=== PATIENT | male | born 1960 | race Caucasian/White ===

== ENCOUNTER 2019-05-30 13:27 | Inpatient (IN) | payer OTHER ==
[2019-05-30] MEDS ORDERED: Ondansetron 4 MG/2 ML SDV IVPUSH ONE (13:55)
[2019-05-30] MEDS ORDERED: Lactated Ringers 1,000 ML IV SCH (14:00)
[2019-05-30] MEDS ORDERED: Iopamidol 612 MG/ML 100 ML Bottle IVPUSH ONE (14:01)
[2019-05-30 14:27] LABS: ANION GAP 20.7 mmol/L (10-20); CHLORIDE,CL 100 mmol/L (98-107); SODIUM,NA 139 mmol/L (136-145)
--- NOTE | 2019-05-30 14:57 | EDM.PDOC ---
ED HPI GENERAL MEDICAL PROBLEM - General Chief Complaint: Abdominal Pain Stated Complaint: abdominal pain, nausea Time Seen by Provider: 05/30/19 13:47 Source of Information: Reports: Patient, Family History Limitations: Reports: No Limitations - History of Present Illness INITIAL COMMENTS - FREE TEXT/NARRATIVE: Patient presents with complaints of abdominal pain, nausea, that started last night at 8 pm. No recent illness contact. Has had appendix removed. Extensive bowel history with multiple obstructions and numerous surgeries with partial colon resection. Denies fever, chills, headache, neck ache. Denies chest pain, diaphoresis, SOB. Denies any bowel or bladder complaints. No blood in urine or stools. Denies edema or joint pain. Describes pain as sharp , stabbing, cramping, and is constant with intermittent intervals of worsening pain. Onset Date: 05/29/19 Duration: Constant, Intermittent Location: Reports: Abdomen Severity: Moderate Upper Abdominal Pain Score (Numeric/FACES): 2 - Related Data Allergies Allergy/AdvReac Type Severity Reaction Status Date / Time No Known Allergies Allergy Verified 05/30/19 13:48 Home Meds: Home Meds Cyanocobalamin (Vitamin B12) [Vitamin B12] 1,000 mcg ASDIRECTED 05/30/19 [ History] FA/Lycopene/Lut/MV,Ca,Iron,Min [Centrum] 1 tab DAILY 05/30/19 [History] L.acidoph,Paracasei, B.lactis [Probiotic] 2 cap BID 05/30/19 [History] oxyCODONE 5 mg TID PRN 05/30/19 [History] Past Medical History - Past Health History Medical/Surgical History: Denies Medical/Surgical History HEENT History: Reports: Other (See Below) Other HEENT History: myopia. presbyopia Gastrointestinal History: Reports: Bowel Obstruction, Other (See Below) Other Gastrointestinal History: alcohol induced pancreatitis. diarrhea. hx of necrotic bowel. malnutrition Neurological History: Reports: Neuropathy, Peripheral Psychiatric History: Reports: Depression Endocrine/Metabolic History: Reports: Other (See Below) Other Endocrine/Metabolic History: malnutrition. septic shock - Infectious Disease History Infectious Disease History: Reports: Hepatitis C - Past Surgical History GI Surgical History: Reports: Other (See Below) Other GI Surgeries/Procedures: bowel resection Social & Family History - Tobacco Use Smoking Status *Q: Current Every Day Smoker Years of Tobacco use: 42 Packs/Tins Daily: 0.5 - Recreational Drug Use Recreational Drug Use: Yes Drug Use in Last 12 Months: No - Living Situation & Occupation Living situation: Reports: , with Family Occupation: Employed ED ROS GENERAL - Review of Systems Review Of Systems: See Below Constitutional: Reports: No Symptoms HEENT: Reports: No Symptoms Respiratory: Reports: No Symptoms Cardiovascular: Reports: No Symptoms Endocrine: Reports: No Symptoms GI/Abdominal: Reports: Abdominal Pain, Nausea, Vomiting : Reports: No Symptoms Musculoskeletal: Reports: No Symptoms Skin: Reports: No Symptoms Neurological: Reports: No Symptoms Psychiatric: Reports: No Symptoms Hematologic/Lymphatic: Reports: No Symptoms Immunologic: Reports: No Symptoms ED EXAM, GI/ABD - Physical Exam Exam: See Below Exam Limited By: No Limitations General Appearance: Alert, WD/WN, Mild Distress Eyes: Bilateral: Normal Appearance, EOMI Ears: Normal TMs Nose: Normal Inspection, Normal Mucosa, No Blood Throat/Mouth: Normal Inspection, Normal Lips, Normal Teeth, Normal Gums, Normal Oropharynx, Normal Voice, No Airway Compromise Head: Atraumatic, Normocephalic Neck: Normal Inspection, Supple, Non-Tender, Full Range of Motion Respiratory/Chest: No Respiratory Distress, Lungs Clear, Normal Breath Sounds, No Accessory Muscle Use, Chest Non-Tender Cardiovascular: Normal Peripheral Pulses, Regular Rate, Rhythm, No Edema, No Gallop, No JVD, No Murmur, No Rub GI/Abdominal Exam: Normal Bowel Sounds, Soft, No Distention, Tender Extremities: Normal Inspection, Normal Range of Motion, Non-Tender, Normal Capillary Refill, No Pedal Edema Neurological: Alert, Oriented, CN II-XII Intact, Normal Cognition, Normal Gait, Normal Reflexes, No Motor/Sensory Deficits Psychiatric: Normal Affect, Normal Mood Skin Exam: Warm, Dry, Intact, Normal Color, No Rash Lymphatic: No Adenopathy Course - Vital Signs Last Recorded V/S: Last Vital Signs Temp 35.9 C 05/30/19 13:30 Pulse 83 05/30/19 13:30 Resp 18 05/30/19 13:30 BP 154/94 H 05/30/19 13:30 Pulse Ox 99 05/30/19 13:30 - Orders/Labs/Meds Orders: Active Orders 24 hr Category Date Time Status Abdomen Pelvis w Cont [CT] Stat Exams 05/30/19 13:55 Ordered Lactated Ringers [Ringers, Lactated] 1,000 ml Med 05/30/19 14:00 Ordered IV ASDIRECTED Sodium Chloride 0.9% [Saline Flush] Med 05/30/19 13:55 Ordered 10 ml FLUSH ASDIRECTED PRN Saline Lock Insert [OM.PC] Routine Oth 05/30/19 13:55 Ordered Medication Orders Lactated Ringer's (Ringers, Lactated) 1,000 mls @ 999 mls/hr IV ASDIRECTED MARTHA Last Admin: 05/30/19 14:05 Dose: 999 mls/hr Sodium Chloride (Saline Flush) 10 ml FLUSH ASDIRECTED PRN PRN Reason: Keep Vein Open Labs: Laboratory Tests 05/30/19 05/30/19 05/30/19 Range/Units 13:40 13:40 14:30 WBC 10.8 H (4.0-10.0) x10^3/uL RBC 4.90 (4.5-6.0) x10^6/uL Hgb 15.5 D (14.0-18.0) g/dL Hct 43.4 (40.0-52.0) % MCV 88.6 D (78.0-93.0) fL MCH 31.6 (26.0-32.0) pg MCHC 35.7 (32.0-36.0) g/dL RDW Coeff of Dionicio 13.0 (10.0-15.0) % Plt Count 237 D (130-400) x10^3/uL Neut % (Auto) 77.5 (50.0-80.0) % Lymph % (Auto) 14.8 L (25.0-50.0) % [place] % (Auto) 7.1 (2.0-11.0) % Eos % (Auto) 0.2 (0.0-4.0) % Baso % (Auto) 0.4 (0.2-1.2) % Sodium 139 (136-145) mmol/L Potassium 3.7 (3.5-5.1) mmol/L Chloride 100 (98-107) mmol/L Carbon Dioxide 22 (21-32) mmol/L Anion Gap 20.7 H (10-20) mmol/L BUN 15 (7-18) mg/dL Creatinine 0.8 (0.70-1.30) mg/dL Est Cr Clr Drug Dosing 80.01 mL/min Estimated GFR (MDRD) > 60 Glucose 95 (74-106) mg/dL Calcium 9.8 D (8.5-10.1) mg/dL Corrected Calcium 9.64 (8.5-10.1) mg/dL Total Bilirubin 2.1 H (0.2-1.0) mg/dL AST 56 H (15-37) U/L ALT 151 H (16-63) U/L Alkaline Phosphatase 88 (46-116) U/L C-Reactive Protein < 0.2 (<=0.9) mg/dL Total Protein 8.3 H (6.4-8.2) g/dL Albumin 4.2 (3.4-5.0) g/dL Globulin 4.1 Albumin/Globulin Ratio 1.02 Urine Color Gretel H (YELLOW) Urine Appearance Clear (CLEAR) Urine pH 5.5 (5.0-8.0) Ur Specific [place] 1.025 Urine Protein 30 H (NEGATIVE) mg/dL Urine Glucose (UA) Negative (NEGATIVE) mg/dL Urine Ketones 40 H (NEGATIVE) mg/dL Urine Occult Blood Negative (NEGATIVE) Urine Nitrite Negative (NEGATIVE) Urine Bilirubin Small H (NEGATIVE) Urine Urobilinogen 2.0 H (0.2) EU/dL Ur Leukocyte Esterase Negative (NEGATIVE) Urine RBC 0-5 (NOT SEEN) /HPF Urine WBC 0-5 (NOT SEEN) /HPF Ur Squamous Epith Cells Few H (NEGATIVE) /HPF Urine Bacteria Few H (NEGATIVE) /HPF Urine Mucus Few H (NEGATIVE) /LPF Meds: Medications Generic Name Dose Route Start Last Admin Trade Name Freq PRN Reason Stop Dose Admin Lactated Ringer's 1,000 mls @ 999 mls/hr 05/30/19 14:00 05/30/19 14:05 Ringers, Lactated IV 999 mls/hr ASDIRECTED MARTHA Administration Sodium Chloride 10 ml 05/30/19 13:55 Saline Flush FLUSH ASDIRECTED PRN Keep Vein Open Discontinued Medications Generic Name Dose Route Start Last Admin Trade Name Freq PRN Reason Stop Dose Admin Iopamidol 100 ml 05/30/19 14:01 05/30/19 14:38 Isovue-300 (61%) IVPUSH 05/30/19 14:02 100 ml ONETIME ONE Administration Ondansetron HCl 4 mg 05/30/19 13:55 05/30/19 14:05 Zofran IVPUSH 05/30/19 13:56 4 mg ONETIME ONE Administration Departure - Departure Time of Disposition: 15:27 Disposition: Admitted As Inpatient 65 Condition: Good Clinical Impression: Small bowel obstruction - Discharge Information *PRESCRIPTION DRUG MONITORING PROGRAM REVIEWED*: Not Applicable *COPY OF PRESCRIPTION DRUG MONITORING REPORT IN PATIENT DORCAS: Not Applicable ED Communication - ED Communication Date/Time Date: 05/30/19 Time Called: 15:15 - Discussed Case With (1) Discussed Case With (1): Admitting Provider (Kiko Marquis was contacted regarding patient admission. Report given and he will admit acute.) - Problem List & Annotations (1) Small bowel obstruction SNOMED Code(s): 715878209 Code(s): K56.609 - UNSP INTESTNL OBST, UNSP TO PARTIAL VERSUS COMPLETE OBST Status: Acute Priority: Medium Current Visit: Yes - Problem List Review Problem List Initiated/Reviewed/Updated: Yes - My Orders Last 24 Hours: My Active Orders 05/30/19 13:55 Abdomen Pelvis w Cont [CT] Stat Sodium Chloride 0.9% [Saline Flush] 10 ml FLUSH ASDIRECTED PRN Saline Lock Insert [OM.PC] Routine 05/30/19 14:00 Lactated Ringers [Ringers, Lactated] 1,000 ml IV ASDIRECTED - Assessment/Plan Last 24 Hours: My Active Orders 05/30/19 13:55 Abdomen Pelvis w Cont [CT] Stat Sodium Chloride 0.9% [Saline Flush] 10 ml FLUSH ASDIRECTED PRN Saline Lock Insert [OM.PC] Routine 05/30/19 14:00 Lactated Ringers [Ringers, Lactated] 1,000 ml IV ASDIRECTED Assessment:: small bowel obstruction Plan: Admit to inpatient. Will insert NG, start on reglan, monitor and transfer as needed. Stable in ED. Patient is code level I.
--- NOTE | 2019-05-30 15:04 | CT ---
[id number] CT/CT Abdomen Pelvis W IV EXAM: CT Abdomen Pelvis W IV CLINICAL DATA: ABDOMINAL PAIN. HISTORY OF PREVIOUS SURGERY. HISTORY OF PREVIOUS BOWEL OBSTRUCTION COMPARISON: CORRELATION IS MADE WITH THE EXAM OF OCTOBER 02, 2016. FINDINGS: Recurrent small bowel obstruction is seen. There is no free fluid or free air. The pelvis shows no mass or adenopathy. The appendix is not seen. There is no abnormality of the kidneys, adrenals, pancreas, aorta, or spleen. There are tiny cysts in the liver. The portal venous system is patent. Gallstones again are identified. Report called at the time of the dictation. IMPRESSION: RECURRENT SMALL BOWEL OBSTRUCTION. Jonny Nair MD 05/30/19 0396 Thank you for allowing us to participate in the care of your patient.
[2019-05-30] MEDS ORDERED: Metoclopramide 10 MG/2 ML SDV IVPUSH SCH ×2 (16:00)
[2019-05-30] MEDS ORDERED: Morphine 4 MG/ML Syringe IVPUSH PRN (16:29)
[2019-05-30] MEDS ORDERED: Ondansetron 4 MG/2 ML SDV IVPUSH PRN (16:30)
[2019-05-30] MEDS ORDERED: Docusate Sodium 100 MG Cap PO PRN (16:31)
--- NOTE | 2019-05-30 16:42 | PCM.HP ---
H&P History of Present Illness - General Date of Service: 05/30/19 Admit Problem/Dx: Admission Diagnosis/Problem Admission Diagnosis/Problem Small bowel obstruction Source of Information: Patient, Family, Group Home Records, Old Records, Provider History Limitations: Reports: No Limitations - History of Present Illness Initial Comments - Free Text/Narative: Pt. presented to ER with one day history of diffuse abdominal pain and vomiting. Pt. has a history of numerous bowel obstructions in the past. He denies any fever or chills. No chest pain or shortness of breath. Denies any blood in his stool or vomit. He states that he did have a bowel movement eariler today. He states that after he vomited prior to coming into the ER, the abdominal discomfort improved. Pt. was seen by John CHOE in ER. CT scan showed partial small bowel obstruction. NG tube was placed to low intermittent suction. Approx. 300ml of output was noted, clear in color, likely from placement of the NG tube. There was no obvious blood or blood clots. At this point, the patient has not required any IV pain medication. He will be started on IV Morphine in the event that the pain worsens. Pt. is seen in clinic by Dr. Funmilayo Dominique who will assume care of the patient in the AM. Symptom Onset Date: 05/29/19 Quality: Reports: Ache Severity: Moderate Worsens with: Reports: Eating Context: Denies: Sick Contact Associated Symptoms: Reports: Nausea/Vomiting Upper Abdominal Pain Score (Numeric/FACES): 2 - Related Data Allergies/Adverse Reactions: Allergies Allergy/AdvReac Type Severity Reaction Status Date / Time No Known Allergies Allergy Verified 05/30/19 13:48 Home Medications: Home Meds Cyanocobalamin (Vitamin B12) [Vitamin B12] 1,000 mcg ASDIRECTED 05/30/19 [ History] FA/Lycopene/Lut/MV,Ca,Iron,Min [Centrum] 1 tab DAILY 05/30/19 [History] L.acidoph,Paracasei, B.lactis [Probiotic] 2 cap BID 05/30/19 [History] oxyCODONE 5 mg TID PRN 05/30/19 [History] Past Medical History - Past Health History Medical/Surgical History: Denies Medical/Surgical History HEENT History: Reports: Other (See Below) Other HEENT History: myopia. presbyopia Gastrointestinal History: Reports: Bowel Obstruction, Other (See Below) Other Gastrointestinal History: alcohol induced pancreatitis. diarrhea. hx of necrotic bowel. malnutrition Neurological History: Reports: Neuropathy, Peripheral Psychiatric History: Reports: Depression Endocrine/Metabolic History: Reports: Other (See Below) Other Endocrine/Metabolic History: malnutrition. septic shock - Infectious Disease History Infectious Disease History: Reports: Hepatitis C - Past Surgical History GI Surgical History: Reports: Other (See Below) Other GI Surgeries/Procedures: bowel resection Social & Family History - Tobacco Use Smoking Status *Q: Current Every Day Smoker Years of Tobacco use: 42 Packs/Tins Daily: 0.5 Tobacco Use Comment: Also "vapes" occasionally - Caffeine Use Caffeine Use: Reports: Coffee Caffeine Use Comment: 1/2 cup coffee per day - Recreational Drug Use Recreational Drug Use: Yes Drug Use in Last 12 Months: No - Living Situation & Occupation Living situation: Reports: , with Family Occupation: Employed H&P Review of Systems - Review of Systems: Review Of Systems: See Below General: Reports: No Symptoms HEENT: Reports: No Symptoms Pulmonary: Reports: No Symptoms Cardiovascular: Reports: No Symptoms Gastrointestinal: Reports: Abdominal Pain, Distension, Nausea, Vomiting Genitourinary: Reports: No Symptoms Musculoskeletal: Reports: No Symptoms Skin: Reports: No Symptoms Psychiatric: Reports: No Symptoms Neurological: Reports: No Symptoms Hematologic/Lymphatic: Reports: No Symptoms Immunologic: Reports: No Symptoms Exam - Exam Exam: See Below - Vital Signs Vital Signs: Last Vital Signs Temp 35.9 C 05/30/19 13:30 Pulse 83 05/30/19 13:30 Resp 18 05/30/19 13:30 BP 154/94 H 05/30/19 13:30 Pulse Ox 99 05/30/19 13:30 Weight: 56.2 kg - Exam General: Alert, Oriented Neck: Supple, Trachea Midline Lungs: Clear to Auscultation, Normal Respiratory Effort Cardiovascular: Regular Rate, Regular Rhythm GI/Abdominal Exam: Soft, No Organomegaly, No Distention, No Mass, Other (bowel sounds hypoactive) (Male) Exam: Deferred Rectal (Males) Exam: Deferred Back Exam: Normal Inspection, Full Range of Motion Extremities: Normal Inspection, Normal Range of Motion, Non-Tender, No Pedal Edema Peripheral Pulses: 4+: Radial (R) Skin: Warm, Dry, Intact Neurological: Cranial Nerves Intact, Reflexes Equal Bilateral Neuro Extensive - Mental Status: Alert, Oriented x3, Normal Mood/Affect, Normal Cognition, Memory Intact Neuro Extensive - Motor, Sensory, Reflexes: CN II-XII Intact, Normal Gait, Normal Reflexes Psychiatric: Alert, Normal Affect, Normal Mood - Patient Data Lab Results Last 24 hrs: Laboratory Results - last 24 hr 05/30/19 05/30/19 05/30/19 Range/Units 13:40 13:40 14:30 WBC 10.8 H (4.0-10.0) x10^3/uL RBC 4.90 (4.5-6.0) x10^6/uL Hgb 15.5 D (14.0-18.0) g/dL Hct 43.4 (40.0-52.0) % MCV 88.6 D (78.0-93.0) fL MCH 31.6 (26.0-32.0) pg MCHC 35.7 (32.0-36.0) g/dL RDW Coeff of Dionicio 13.0 (10.0-15.0) % Plt Count 237 D (130-400) x10^3/uL Neut % (Auto) 77.5 (50.0-80.0) % Lymph % (Auto) 14.8 L (25.0-50.0) % [place] % (Auto) 7.1 (2.0-11.0) % Eos % (Auto) 0.2 (0.0-4.0) % Baso % (Auto) 0.4 (0.2-1.2) % Sodium 139 (136-145) mmol/L Potassium 3.7 (3.5-5.1) mmol/L Chloride 100 (98-107) mmol/L Carbon Dioxide 22 (21-32) mmol/L Anion Gap 20.7 H (10-20) mmol/L BUN 15 (7-18) mg/dL Creatinine 0.8 (0.70-1.30) mg/dL Est Cr Clr Drug Dosing 80.01 mL/min Estimated GFR (MDRD) > 60 Glucose 95 (74-106) mg/dL Calcium 9.8 D (8.5-10.1) mg/dL Corrected Calcium 9.64 (8.5-10.1) mg/dL Total Bilirubin 2.1 H (0.2-1.0) mg/dL AST 56 H (15-37) U/L ALT 151 H (16-63) U/L Alkaline Phosphatase 88 (46-116) U/L C-Reactive Protein < 0.2 (<=0.9) mg/dL Total Protein 8.3 H (6.4-8.2) g/dL Albumin 4.2 (3.4-5.0) g/dL Globulin 4.1 Albumin/Globulin Ratio 1.02 Urine Color Gretel H (YELLOW) Urine Appearance Clear (CLEAR) Urine pH 5.5 (5.0-8.0) Ur Specific [place] 1.025 Urine Protein 30 H (NEGATIVE) mg/dL Urine Glucose (UA) Negative (NEGATIVE) mg/dL Urine Ketones 40 H (NEGATIVE) mg/dL Urine Occult Blood Negative (NEGATIVE) Urine Nitrite Negative (NEGATIVE) Urine Bilirubin Small H (NEGATIVE) Urine Urobilinogen 2.0 H (0.2) EU/dL Ur Leukocyte Esterase Negative (NEGATIVE) Urine RBC 0-5 (NOT SEEN) /HPF Urine WBC 0-5 (NOT SEEN) /HPF Ur Squamous Epith Cells Few H (NEGATIVE) /HPF Urine Bacteria Few H (NEGATIVE) /HPF Urine Mucus Few H (NEGATIVE) /LPF Result Diagrams: 05/30/19 13:40 05/30/19 13:40 Problem List Initiated/Reviewed/Updated: Yes Orders Last 24hrs: Active Orders 24 hr Category Date Time Status Patient Status [ADT] Routine ADT 05/30/19 15:18 Active Antiembolic Devices [RC] PER UNIT ROUTINE Care 05/30/19 16:33 Ordered Intake and Output [RC] QSHIFT Care 05/30/19 16:26 Ordered Up With Assistance [RC] ASDIRECTED Care 05/30/19 16:26 Ordered VTE/DVT Education [RC] PER UNIT ROUTINE Care 05/30/19 16:26 Ordered Vital Signs [RC] Q4H Care 05/30/19 16:26 Ordered Nothing Per Oral Diet [DIET] Diet 05/30/19 Dinner Ordered Abdomen 2V AP Flat Upright [CR] Stat Exams 05/30/19 15:30 Ordered BMP [BASIC METABOLIC PANEL,BMP] [CHEM] AM Lab 05/31/19 05:11 Ordered CBC WITH AUTO DIFF [HEME] AM Lab 05/31/19 05:11 Ordered D5 1/2 NS w/ 20 mEq/L KCl 1,000 ml Med 05/30/19 16:45 Ordered IV ASDIRECTED Docusate Sodium [Colace] Med 05/30/19 16:31 Ordered 100 mg PO TID PRN Lactated Ringers [Ringers, Lactated] 1,000 ml Med 05/30/19 14:00 Active IV ASDIRECTED Metoclopramide [Reglan] Med 05/30/19 16:30 Ordered 5 mg IVPUSH Q4H Morphine Med 05/30/19 16:29 Ordered 4 mg IVPUSH Q4H PRN Ondansetron [Zofran] Med 05/30/19 16:30 Ordered 4 mg IVPUSH Q8H PRN Pantoprazole [ProTONIX IV] Med 05/30/19 16:45 Ordered 40 mg IVPUSH Q12H Sodium Chloride 0.9% [Saline Flush] Med 05/30/19 13:55 Active 10 ml FLUSH ASDIRECTED PRN Nasogastric Orogastric Tube Insertion [OM.PC] Routine Oth 05/30/19 15:29 Ordered Saline Lock Insert [OM.PC] Routine Oth 05/30/19 13:55 Ordered Sequential Compression Device [OM.PC] Routine Oth 05/30/19 16:33 Ordered Code Status [Resuscitation Status] Routine Resus Stat 05/30/19 16:27 Ordered Medication Orders Docusate Sodium (Colace) 100 mg PO TID PRN PRN Reason: Constipation Lactated Ringer's (Ringers, Lactated) 1,000 mls @ 999 mls/hr IV ASDIRECTED MARTHA Last Admin: 05/30/19 14:05 Dose: 999 mls/hr Potassium Chloride/Dextrose/Sod Cl (D5 1/2 Ns W/ 20 Meq/L Kcl) 1,000 mls @ 100 mls/hr IV ASDIRECTED MARTHA Metoclopramide HCl (Reglan) 5 mg IVPUSH Q4H MARTHA Morphine Sulfate (Morphine) 4 mg IVPUSH Q4H PRN PRN Reason: Abdominal Pain Ondansetron HCl (Zofran) 4 mg IVPUSH Q8H PRN PRN Reason: Nausea Pantoprazole Sodium (Protonix Iv) 40 mg IVPUSH Q12H MARTHA Sodium Chloride (Saline Flush) 10 ml FLUSH ASDIRECTED PRN PRN Reason: Keep Vein Open Assessment/Plan Comment:: Pt. admitted acutely. He is a code 1. Keep NPO. Continue low intermittent suction to NG. SCD. Reglan 5 mg every 4 hours scheduled to improve motility/peristalsis. Morphine 4 mg every 4 hours as needed for pain. IV protonix 40mg twice daily for stress ulcer prophylaxis. Ambulate if able. Repeat CBC and BMP in AM. Discussed findings with patient and family. Care will be transferred to Dr. Dominique in the AM.
--- NOTE | 2019-05-30 17:13 | CR ---
[id number] RAD/RAD Abd Flat and Upright 2V Exam: RAD Abd Flat and Upright 2V Clinical Data: NG TUBE PLACEMENT COMPARISON: CORRELATION IS MADE WITH THE EARLIER CAT SCAN FINDINGS: The NG tube is in the gastric body. IMPRESSION: NG TUBE IN PLACE. Jonny Nair MD 05/30/19 [id number] Thank you for allowing us to participate in the care of your patient.
[2019-05-30] MEDS: D5 1/2 NS w/ 20 mEq/L KCl 1,000 ML IV SCH (17:14)
[2019-05-30] MEDS: Pantoprazole 40 MG Vial IVPUSH SCH (17:14)
[2019-05-30] MEDS: Metoclopramide 10 MG/2 ML SDV IVPUSH SCH (20:34)
[2019-05-31] MEDS: Metoclopramide 10 MG/2 ML SDV IVPUSH SCH ×6 (00:03→19:17)
[2019-05-31] MEDS: Pantoprazole 40 MG Vial IVPUSH SCH ×2 (03:35→10:53)
[2019-05-31] MEDS: D5 1/2 NS w/ 20 mEq/L KCl 1,000 ML IV SCH (03:36)
[2019-05-31 07:15] LABS: CHLORIDE,CL 106 mmol/L (98-107); SODIUM,NA 140 mmol/L (136-145)
[2019-05-31 07:17] LABS: ANION GAP 10.1 mmol/L (10-20)
[2019-05-31] MEDS ORDERED: oxyCODONE 5 MG Tab PO PRN (09:58)
--- NOTE | 2019-05-31 10:37 | PN ---
Progress Note for SHANNAN CORTEZ Date: 05/31/2019 Room #: VM.204 SUBJECTIVE: This is hospital day #2 on a 59-year-old seen for a small bowel obstruction. The patient had severe abdominal pain and vomiting starting around 8:00 p.m. on Friday evening. He did not have any fever or chills. He had a CT, which did show this partial small bowel obstruction. He had an NG tube placed and has had a total of 900 out. Then, it was emptied this morning around 5:00 a.m. He has only had 100 since. He reports having no abdominal pain now since about 9:00 p.m. last night. No nausea. He has been on scheduled Reglan. He only got 1 dose of morphine around 5:00. Otherwise, his breathing is good. His is concerned about him losing weight. He did go down about 9 pounds from February to May, but was down to 130 also last summer. He is quite active at work. He has a complicated past medical history, which I need to include that he had last bowel obstruction in 03/2016 due to a retained piece of his G-tube, had to have surgery. Then, he had an ileus again in 09/2016, but prior to that he had numerous bowel resections back in 2014 due to necrotic bowel from Kayexal[place] and an episode of shock, spent several months at the [facility] and on TPN. The patient also has history of hepatitis C, which has not been treated. OBJECTIVE: Vital Signs: The patient's temperature is 97.9, pulse 59, blood pressure 123/78, respiratory rate 16, and O2 of 96% on room air. General: He is in no acute distress. Heart: Regular rate and rhythm. S1, S2 without murmur. Lungs: Lung sounds are clear to auscultation bilaterally without crackles or wheezes. Abdomen: Soft, nontender. Scars from previous surgeries are noted. He has positive bowel sounds. Mental Status: Alert and orientated x3. Extremities: Warm and dry. He has no edema. SCDs are in place. LABORATORY DATA: Lab work today does show his white count 7.4; hemoglobin 13.4, down slightly; platelets 218. Sodium 140, potassium 4.1, chloride 106, bicarb 28, BUN 12, creatinine 0.9, calcium 8.6. ASSESSMENT: 1. Partial small bowel obstruction. No transition point was noted on the CT. We will continue to treat conservatively. I will clamp the NG today. If he tolerates that, after about 4 hours, we will likely advance his diet to clear liquids. If that is going well, we will go ahead and remove the NG. I anticipate he will need another night stay and will be discharged home tomorrow morning if tolerating an improved diet. Likely, he should stay on liquids to soft foods for the next couple of days until this thing fully resolves. We will continue IV Reglan, maybe even need to send him home on some oral Reglan. He is not passing any gas. His last bowel movement was yesterday morning. We will get him up walking in the halls and see if that helps. I will decrease IV Protonix to once daily. 2. Recent weight loss, presumably due to change in activity level. We will continue to monitor. 3. Adjustment disorder with depressed mood. He was recently restarted on Cymbalta. 4. 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 He has been weaned down to oxycodone a total of 15 mg per day. 5. Chronic hepatitis C. He has not received treatment. 6. Mild anemia, probably due to hemodilution. 7. Elevated liver test with bilirubin. We will repeat again tomorrow. PLAN: At this point, the patient will continue acute cares. We will clamp the NG, hopefully remove later today and have him on clear liquids. Dr. Townsend to see tomorrow. Dr. Taylor is also aware of the patient since he is on-call today. DVT prophylaxis is SCDs. MKA: 05/31/2019 09:37:37 MODL: 05/31/2019 10:26:31 /[id number]
[2019-06-01] MEDS: Metoclopramide 10 MG/2 ML SDV IVPUSH SCH ×3 (00:02→07:35)
[2019-06-01] MEDS: Sodium Chloride 0.9% 10 ML Syringe FLUSH PRN ×3 (00:03→07:35)
[2019-06-01 06:47] LABS: CHLORIDE,CL 105 mmol/L (98-107); SODIUM,NA 141 mmol/L (136-145)
[2019-06-01 06:49] LABS: ANION GAP 12.1 mmol/L (10-20)
[2019-06-01] MEDS: Pantoprazole 40 MG Vial IVPUSH SCH ×2 (07:35→09:58)
--- NOTE | 2019-06-01 09:20 | PCM.DCSUM1 ---
Discharge Summary - Hospital Course Brief History: Mr. Edmonds is a 59 yo male who was admitted with a partial small bowel obstruction after presenting to the ER for evaluation of abdominal pain and vomiting for the preceding 24 hours. Diagnosis: Stroke: No - Discharge Data Discharge Date: 06/01/19 Discharge Disposition: Home, Self-Care 01 Condition: Good - Patient Summary/Data Operative Procedure(s) Performed: none Complications: none Consults: Consultations 05/30/19 18:49 Consult to Case Management/Mask Inspector [CONS] Routine Labs Pending at D/C: none Recommended Follow-up Testing/Procedures: none Planned Operative Procedure(s) after DC: none Hospital Course: The patient was admitted to acute and started on IV fluids as well as IV medications for pain and nausea. An NG tube was placed and he was kept NPO. By the following morning, his symptoms had significantly improved. Therefore, his NG tube was clamped and he was started on a clear liquid diet. His medications were transitioned from IV to oral. He has tolerated this without any issues and is requesting to be discharged home today. He is currently asymptomatic and feels that he is back to his usual state of health. He will be discharged home on his usual medications with the addition of reglan. He will follow-up with his PCP in 1 week. - Patient Instructions Diet, Other: Liquid diet x 2 days, then soft diet, then advance as able Activity: Rest and Relax Today Showering/Bathing: May Shower Notify Provider of: Fever, Increased Pain, Swelling and Redness, Nausea and/or Vomiting - Discharge Plan *PRESCRIPTION DRUG MONITORING PROGRAM REVIEWED*: Not Applicable *COPY OF PRESCRIPTION DRUG MONITORING REPORT IN PATIENT DORCAS: Not Applicable Prescriptions/Med Rec: Metoclopramide HCl [Reglan] 5 mg PO TID #21 tablet Home Medications: Home Meds Cyanocobalamin (Vitamin B12) [Vitamin B12] 1,000 mcg ASDIRECTED 05/30/19 [ History] FA/Lycopene/Lut/MV,Ca,Iron,Min [Centrum] 1 tab DAILY 05/30/19 [History] L.acidoph,Paracasei, B.lactis [Probiotic] 2 cap BID 05/30/19 [History] oxyCODONE 5 mg TID PRN 05/30/19 [History] Metoclopramide HCl [Reglan] 5 mg PO TID #21 tablet 06/01/19 [Rx] Forms: ED Department Discharge Referrals: Funmilayo Dominique DO [Primary Care Provider] - - Discharge Summary/Plan Comment DC Time >30 min.: No - General Info Date of Service: 06/01/19 Subjective Update: Mr. Edmonds is a 59 yo male hospital day #3 admitted with small bowel obstruction. He reports he is feeling well this morning. He denies any abdominal pain overnight. He has been able to tolerate a clear liquid diet without any issues. He denies any nausea or vomiting. He had a bowel movement last evening and 2 more today. He is passing gas. He would like to go home today. - Review of Systems General: Reports: No Symptoms HEENT: Reports: No Symptoms Pulmonary: Reports: No Symptoms Cardiovascular: Reports: No Symptoms Gastrointestinal: Reports: No Symptoms Genitourinary: Reports: No Symptoms Musculoskeletal: Reports: No Symptoms Skin: Reports: No Symptoms Neurological: Reports: No Symptoms - Patient Data Vitals - Most Recent: Last Vital Signs Temp 36.8 C 06/01/19 05:17 Pulse 51 L 06/01/19 05:17 Resp 12 06/01/19 05:17 BP 145/78 H 06/01/19 05:17 Pulse Ox 99 06/01/19 05:17 Weight - Most Recent: 56.2 kg I&O - Last 24 hours: Intake & Output 05/31/19 06/01/19 06/01/19 22:59 06:59 14:59 Intake Total 1301 1150 Balance 1301 1150 Lab Results - Last 24 hrs: Laboratory Results - last 24 hr 05/31/19 06/01/19 06/01/19 Range/Units 06:26 06:13 06:13 WBC 6.0 (4.0-10.0) x10^3/uL RBC 4.11 L (4.5-6.0) x10^6/uL Hgb 13.2 L (14.0-18.0) g/dL Hct 38.2 L (40.0-52.0) % MCV 92.9 (78.0-93.0) fL MCH 32.1 H (26.0-32.0) pg MCHC 34.6 (32.0-36.0) g/dL RDW Coeff of Dionicio 13.3 (10.0-15.0) % Plt Count 196 (130-400) x10^3/uL Neut % (Auto) 50.2 (50.0-80.0) % Lymph % (Auto) 29.9 (25.0-50.0) % Dale % (Auto) 16.4 H (2.0-11.0) % Eos % (Auto) 2.8 (0.0-4.0) % Baso % (Auto) 0.7 (0.2-1.2) % Sodium 141 (136-145) mmol/L Potassium 4.1 (3.5-5.1) mmol/L Chloride 105 (98-107) mmol/L Carbon Dioxide 28 (21-32) mmol/L Anion Gap 12.1 (10-20) mmol/L BUN 10 (7-18) mg/dL Creatinine 0.9 (0.70-1.30) mg/dL Est Cr Clr Drug Dosing 69.38 mL/min Estimated GFR (MDRD) > 60 Glucose 82 (74-106) mg/dL Calcium 8.8 (8.5-10.1) mg/dL Corrected Calcium 9.20 (8.5-10.1) mg/dL Magnesium 1.7 L (1.8-2.4) mg/dL Total Bilirubin 2.3 H (0.2-1.0) mg/dL AST 61 H (15-37) U/L ALT 143 H (16-63) U/L Alkaline Phosphatase 77 (46-116) U/L Total Protein 7.0 (6.4-8.2) g/dL Albumin 3.5 (3.4-5.0) g/dL Globulin 3.5 Albumin/Globulin Ratio 1.00 Med Orders - Current: Current Medications Docusate Sodium (Colace) 100 mg PO TID PRN PRN Reason: Constipation Metoclopramide HCl (Reglan) 5 mg IVPUSH Q4H [facility] Last Admin: 06/01/19 07:35 Dose: 5 mg Morphine Sulfate (Morphine) 4 mg IVPUSH Q4H PRN PRN Reason: Abdominal Pain Last Admin: 05/30/19 17:12 Dose: 4 mg Ondansetron HCl (Zofran) 4 mg IVPUSH Q8H PRN PRN Reason: Nausea Oxycodone HCl (Oxycodone) 5 mg PO TID PRN PRN Reason: Pain Pantoprazole Sodium (Protonix Iv) 40 mg IVPUSH Q24H [facility] Last Admin: 06/01/19 07:35 Dose: 40 mg Sodium Chloride (Saline Flush) 10 ml FLUSH ASDIRECTED PRN PRN Reason: Keep Vein Open Last Admin: 06/01/19 07:35 Dose: 10 ml Discontinued Medications Lactated Ringer's (Ringers, Lactated) 1,000 mls @ 999 mls/hr IV ASDIRECTED [facility] Last Admin: 05/30/19 14:05 Dose: 999 mls/hr Potassium Chloride/Dextrose/Sod Cl (D5 1/2 Ns W/ 20 Meq/L Kcl) 1,000 mls @ 100 mls/hr IV ASDIRECTED [facility] Last Admin: 05/31/19 03:36 Dose: 100 mls/hr Iopamidol (Isovue-300 (61%)) 100 ml IVPUSH ONETIME ONE Stop: 05/30/19 14:02 Last Admin: 05/30/19 14:38 Dose: 100 ml Metoclopramide HCl (Reglan) 10 mg IVPUSH Q8H [facility] Last Admin: 05/30/19 16:09 Dose: 10 mg Ondansetron HCl (Zofran) 4 mg IVPUSH ONETIME ONE Stop: 05/30/19 13:56 Last Admin: 05/30/19 14:05 Dose: 4 mg Pantoprazole Sodium (Protonix Iv) 40 mg IVPUSH Q12H [facility] Last Admin: 05/31/19 03:35 Dose: 40 mg - Exam General: Reports: Alert, Oriented, Cooperative, No Acute Distress HEENT: Reports: Pupils Equal, Pupils Reactive, Mucous Membr. Moist/[place]: Reports: Supple, Trachea Midline, No Thyromegaly. Denies: Lymphadenopathy Lungs: Reports: Clear to Auscultation, Normal Respiratory Effort Cardiovascular: Reports: Regular Rate, Regular Rhythm, No Murmurs GI/Abdominal Exam: Normal Bowel Sounds, Soft, Non-Tender, No Organomegaly, No Distention, No Mass Extremities: Non-Tender, No Pedal Edema, Normal Capillary Refill Skin: Reports: Warm, Dry, Intact Neurological: Reports: No New Focal Deficit
[2019-06-01 10:11] VITALS: BP 116/63; PULSE 75
== END 2019-06-01 10:10 | disposition home or self-care (01) | DRG 390 ==
LOC: VM.ED 13:27 → VM.MS 15:18
PROVIDERS: ADMIT Physician Assistant; ATTEND Internal Medicine
DX: K56.600 Partial intestinal obstruction, unspecified as to cause (principal); G62.9 Polyneuropathy, unspecified; B19.20 Unspecified viral hepatitis C without hepatic coma; F17.210 Nicotine dependence, cigarettes, uncomplicated; D64.9 Anemia, unspecified; F43.21 Adjustment disorder with depressed mood; Z88.5 Allergy status to narcotic agent; Z79.899 Other long term (current) drug therapy
CPT/HCPCS: 36415; 74019; 74177; 80048; 80053; 81001; 83735; 85025; 86140; 96361; 96374; 99285-25; C9113; J2270; J2405; J2765; J3480; J7120; Q9967

== ENCOUNTER 2023-04-30 09:01 | Emergency (ER) | payer OTHER ==
[2023-04-30] MEDS ORDERED: Bupivacaine 0.25% 30 ML SDV INJECT PRN (09:08)
[2023-04-30 14:11] VITALS: BP 132/56; PULSE 66
== END 2023-04-30 11:10 | disposition home or self-care (01) ==
LOC: VM.ED 09:01
DX: S61.211A Laceration without foreign body of left index finger without damage to nail, initial encounter (principal); W23.0XXA Caught, crushed, jammed, or pinched between moving objects, initial encounter; Y92.89 Other specified places as the place of occurrence of the external cause; Y99.0 Civilian activity done for income or pay
CPT/HCPCS: 12001; 73140-F1; 99283; J3490